=== PATIENT | female | born 1930 | race Two or more races ===

== ENCOUNTER 2017-04-20 05:06 | Emergency (ER) | payer MEDICARE, OTHER ==
[~2017-04-20] VITALS: Ht 162.6 cm; Wt 45.4 kg
[~2017-04-20 05:06] MED LIST: CARB1TAB21 PO; ESTR0.5T4 PO; HYDR-3658; LORA-258
--- NOTE | 2017-04-20 05:14 | NUR ---
To bed 04 a 86 yo female [id number] [facility] for right upper extremity cramping x1 hour. Patient denies any trauma/injury. Distal CMS is intact. VSS. Initiated comfort measures. Gowned. Awaiting for luis daniel eldridge. Addendum: 04/20/17 at 0636 by JANINA right lower extremity pain
--- NOTE | 2017-04-20 05:15 | NUR ---
Dr Cee at bedside.
[2017-04-20] MEDS ORDERED: ONDANSETRON HCL/PF 4 MG/2 ML VIAL ONE (05:27)
[2017-04-20] MEDS ORDERED: MORPHINE SULFATE INJ 4 MG/ML DISP.SYRIN ONE (05:27)
[2017-04-20] MEDS ORDERED: Magnesium 1GM/D5W 100ML PREMIX 100 ML IV ONE (05:27)
[2017-04-20] MEDS ORDERED: IV SET PRIMARY PUMP SET 1 EA INFUS.SET MC ONE (05:27)
[2017-04-20] MEDS ORDERED: Magnesium 1 GM/2 ML VIAL IV ONE (05:30)
[2017-04-20] MEDS ORDERED: ONDANSETRON HCL/PF 4 MG/2 ML VIAL IV ONE (05:30)
[2017-04-20] MEDS ORDERED: MORPHINE SULFATE INJ 2 MG/ML DISP.SYRIN IV ONE (05:30)
--- NOTE | 2017-04-20 05:35 | NUR ---
started a saline lock on the left forearm g20, blood drawn and sent to lab.
--- NOTE | 2017-04-20 05:41 | NUR ---
patient taken to ct.
[2017-04-20 05:50] LABS: HEMATOCRIT 40 % (33-45); HEMOGLOBIN 13.4 g/dL (11.5-14.8); MEAN CORPUSCULAR HEMOGLOBIN 33 PG (26.0-33.0); MEAN CORPUSCULAR HGB CONC 34 g/dl (31.0-36.0); MEAN CORPUSCULAR VOLUME 97 fL (82-100); WHITE BLOOD COUNT (AUTO) 4.2 K/uL (4.3-11.0)
[2017-04-20 05:51] LABS: BASOPHILS % (AUTO) 0.6 % (0.0-2.0); EOSINOPHILS % (AUTO) 1.2 % (0.0-6.0); LYMPHOCYTES # (AUTO) 1.2 /CMM (0.8-4.8); MONOCYTES # (AUTO) 0.3 /CMM (0.1-1.30); MONOCYTES % (AUTO) 7.9 % (2.0-12.0); NEUTROPHILS # (AUTO) 2.6 /CMM (1.8-8.9); NEUTROPHILS % (AUTO) 62.3 % (43.0-81.0); PLATELET COUNT (AUTO) 106 /CMM (150-450); RDW COEFFICIENT OF VARIATION 13.2 (11.5-15.0)
[2017-04-20 05:55] LABS: CALCIUM, SERUM 9.1 mg/dL (8.5-10.1); CARBON DIOXIDE 27 mmol/L (21-32); CHLORIDE 102 mmol/L (98-107); CREATININE 0.9 mg/dL (0.6-1.3); GLUCOSE 118 mg/dL (74-106); POTASSIUM 4.3 mmol/L (3.5-5.1); SODIUM SERUM 135 mmol/L (136-145); UREA NITROGEN, BLOOD 20 mg/dL (7-18)
[2017-04-20 05:57] LABS: INR 0.96 (0.87-1.13); PROTHROMBIN TIME 10.3 SECS (9.5-12.7)
--- NOTE | 2017-04-20 08:20 | NUR ---
CALLED FOR TRANSPORT - ETA 30-45 MINUTES
[2017-04-20 08:49] VITALS: BP 159/68
--- NOTE | 2017-04-20 08:50 | NUR ---
pt dc back to snf in stable condition. nad noted. pt verbalized understanding of dc instructions. vss. leaving with ems via ambulance.
[2017-04-20] MEDS ORDERED: ACETAMINOPHEN ES 500 MG TABLET PO ONE (09:00)
== END 2017-04-20 08:50 | disposition home or self-care (01) ==
LOC: ER 05:08
DX: G20 Parkinson's disease (principal); Z90.89 Acquired absence of other organs; Z88.8 Allergy status to other drugs, medicaments and biological substances; Z98.890 Other specified postprocedural states
CPT/HCPCS: 36415; 72128-TC; 72131-TC; 80048-TC; 82550-TC; 85025-TC; 85730-TC; A4606; J2270; J2405; J3475; Z7610

== ENCOUNTER 2018-04-19 11:51 | Emergency (ER) | payer MEDICARE, OTHER ==
[~2018-04-19] VITALS: Ht 154.9 cm; Wt 59.0 kg
[2018-04-19 12:03] VITALS: BP 152/76
== END 2018-04-19 13:20 | disposition home or self-care (01) ==
LOC: ER 11:53
DX: M25.512 Pain in left shoulder (principal); Z90.89 Acquired absence of other organs; Z88.8 Allergy status to other drugs, medicaments and biological substances
CPT/HCPCS: 73030-TC; A4606; Z7610